=== PATIENT | female | born 1945 | race Caucasian/White ===

== ENCOUNTER → 2017-04-03 | Outpatient (CLI) | payer OTHER | LOC: FIMAGING 08:33 | PROVIDERS: ATTEND Obstetrics & Gynecology Gynecology | DX: Z12.31 Encounter for screening mammogram for malignant neoplasm of breast (principal); Z85.3 Personal history of malignant neoplasm of breast | CPT/HCPCS: G0202 ==

== ENCOUNTER → 2017-05-01 | Outpatient (CLI) | payer OTHER | LOC: FIMAGING 08:49 | PROVIDERS: ATTEND Obstetrics & Gynecology Gynecology | DX: R92.8 Other abnormal and inconclusive findings on diagnostic imaging of breast (principal) | CPT/HCPCS: G0206 ==

== ENCOUNTER → 2018-05-19 | Outpatient (CLI) | payer OTHER, MEDICARE | LOC: FIMAGING 14:23 | PROVIDERS: ATTEND Obstetrics & Gynecology Gynecology | DX: Z12.31 Encounter for screening mammogram for malignant neoplasm of breast (principal); Z85.3 Personal history of malignant neoplasm of breast; Z92.3 Personal history of irradiation ==